=== PATIENT | female | born 1930 | race Caucasian/White ===

== ENCOUNTER 2016-08-15 13:39 | Emergency (ER) | payer OTHER ==
[~2016-08-15] VITALS: Ht 154.9 cm; Wt 65.9 kg
[~2016-08-15 13:39] MED LIST: ANTIVERT25 MG PO; APRESOLINE50 MG PO; ARTIFICIAL TEAR15 M1 BOTH EYES; ASPIR 8181 M1 PO; ASPIRIN81 M1 PO; ASPIRIN81 M2 PO; BYSTOLIC10 MG PO; BYSTOLIC20 MG PO; Bystolic PO; CATAPRES0.1 MG PO; CITRACAL D + H1 EACH PO; CLONIDINE HCL0.1 MG PO; CLONIDINE HCL0.2 MG PO; DICYCLOMINE HCL10 MG PO; HYDRALAZINE HCL50 MG PO; KENALOG,ARISTOC80 GM TP; LANSOPRAZOLE30 MG PO; LO-DOSE ASPIRIN81 M1 PO; LORAZEPAM0.5 MG PO; MECLIZINE HCL25 MG PO; MICROZIDE12.5 M1 PO; OMEPRAZOLE20 MG PO; Ocu-Omega PO; PRESERVISION T1 EACH PO; PREVACID30 MG PO; RANITIDINE HCL150 MG PO; SIMVASTATIN10 MG PO; TAMIFLU75 MG PO; TEKTURNA150 MG PO; TEKTURNA300 MG PO; VAGIFEM10 MCG VG; Vagifem VG; ZANTAC150 MG PO; ZOCOR10 MG PO; ZOFRAN ODT4 MG PO; Zofran IV
[2016-08-15 14:51] LABS: HEMATOCRIT 37.5 % (36.0-46.0); MCH 29.2 PG (29.0-34.0); MCHC 33.3 G/DL (30.0-36.0); MCV 87.6 FL (83-99); MEAN PLAT.VOLUME 9.3 uM^3 (9.5-12.4); PLATELET COUNT 175 K/uL (156-360); RBC DIS.WIDTH-CV 13.2 % (11.8-14.6); RBC DIS.WIDTH-SD 42.2 % (39-53); RED BLOOD COUNT 4.28 M/uL (3.80-5.20); WHITE BLOOD COUNT 6.8 K/uL (4.1-10.2)
[2016-08-15 15:35] LABS: ANION GAP 8 MEQ/L (2-14); CHLORIDE 99 MEQ/L (99-109); POTASSIUM 4.5 MEQ/L (3.7-5.4); SAMPLE HEMOLYSIS CHECK 0; SAMPLE ICTERIC CHECK 0; SAMPLE LIPEMIA CHECK 0; SODIUM 134 MEQ/L (136-147); TOTAL BILIRUBIN 0.5 MG/DL (0.0-1.0)
[2016-08-15 15:40] LABS: ALKALINE PHOSPHATASE 89 IU/L (3-129); GFR ESTIMATE (CALCULATED) > 59 mL/min/; GLUCOSE 114 mg/dL (70-99); UREA NITROGEN (BUN) 10 mg/dL (9-23)
[2016-08-15 15:44] LABS: ADD MIUA? NO; BILIRUBIN NEGATIVE; BLOOD NEGATIVE; COLOR YELLOW ((YELLOW)); GLUCOSE (STRIP) 50; KETONES NEGATIVE; LEUKOCYTES NEGATIVE; NITRITE NEGATIVE; PROTEIN (STRIP) 30; SPECIFIC GRAVITY 1.011 (1.000-1.030); UCUL ADDED? NO; UROBILINOGEN 0.2 MG/DL (0.2-1.0)
[2016-08-15 16:23] LABS: TROP-I INTERPRETATION NEGATIVE; TROPONIN-I 0.02 ng/mL (0.0-0.30)
[2016-08-15] MEDS ORDERED: ZANTAC150 MG PO (20:47)
[2016-08-15] MEDS ORDERED: BENTYL20 MG PO (20:47)
[2016-08-15] MEDS ORDERED: ZOFRAN ODT8 MG PO (20:47)
[2016-08-15 21:39] VITALS: BP 171/59
== END 2016-08-15 21:40 | disposition home or self-care (01) ==
LOC: EME 13:39
DX: R10.9 Unspecified abdominal pain (principal); R11.2 Nausea with vomiting, unspecified; K21.9 Gastro-esophageal reflux disease without esophagitis; Z86.73 Personal history of transient ischemic attack (TIA), and cerebral infarction without residual deficits
CPT/HCPCS: 74177; 80053; 81003; 83880; 84484; 85027; 99281; 99285; J0360; J2270; J2405; J7030

== ENCOUNTER 2017-03-07 11:23 | Emergency (ER) | payer OTHER ==
[~2017-03-07] VITALS: Ht 154.9 cm; Wt 62.7 kg
[~2017-03-07 11:23] MED LIST changes: +BENTYL20 MG PO; +ZOFRAN ODT8 MG PO
[2017-03-07 14:17] VITALS: BP 189/68
== END 2017-03-07 14:18 | disposition home or self-care (01) ==
LOC: EME 11:23
DX: S00.03XA Contusion of scalp, initial encounter (principal); S40.012A Contusion of left shoulder, initial encounter; W10.1XXA Fall (on)(from) sidewalk curb, initial encounter; R42 Dizziness and giddiness; I10 Essential (primary) hypertension; Z79.82 Long term (current) use of aspirin; Z86.73 Personal history of transient ischemic attack (TIA), and cerebral infarction without residual deficits; Z85.038 Personal history of other malignant neoplasm of large intestine; Z90.49 Acquired absence of other specified parts of digestive tract
CPT/HCPCS: 70450; 99281; 99284

== ENCOUNTER 2017-03-24 18:51 | Inpatient (IN) | payer OTHER ==
[~2017-03-24] VITALS: Ht 154.9 cm; Wt 65.4 kg
[2017-03-24 19:11] LABS: HEMATOCRIT 38.3 % (36.0-46.0); MCH 29.9 PG (29.0-34.0); MCHC 34.5 G/DL (30.0-36.0); MCV 86.7 FL (83-99); MEAN PLAT.VOLUME 9.5 uM^3 (9.5-12.4); PLATELET COUNT 161 K/uL (156-360); RBC DIS.WIDTH-CV 13.2 % (11.8-14.6); RBC DIS.WIDTH-SD 41.3 % (39-53); RED BLOOD COUNT 4.42 M/uL (3.80-5.20); WHITE BLOOD COUNT 8.6 K/uL (4.1-10.2)
[2017-03-24 19:21] LABS: CHLORIDE 95 mEq/L (99-109); SODIUM 134 mEq/L (136-147)
[2017-03-24 19:23] LABS: ADD MIUA? YES; BILIRUBIN NEGATIVE; BLOOD SMALL; COLOR COLORLESS ((YELLOW)); GLUCOSE (STRIP) NEGATIVE; KETONES 20; LEUKOCYTES NEGATIVE; NITRITE NEGATIVE; PROTEIN (STRIP) 30; SPECIFIC GRAVITY 1.006 (1.000-1.030); UROBILINOGEN 0.2 MG/DL (0.2-1.0)
[2017-03-24 19:24] LABS: GLUCOSE 110 mg/dL (70-99)
[2017-03-24 19:25] LABS: ANION GAP 16 MEQ/L (2-14)
[2017-03-24 19:26] LABS: TOTAL BILIRUBIN 0.9 mg/dL (0.0-1.0)
[2017-03-24 19:27] LABS: ALKALINE PHOSPHATASE 107 IU/L (3-129); GFR ESTIMATE (CALCULATED) > 59 mL/min/
[2017-03-24 19:28] LABS: UREA NITROGEN (BUN) 11 mg/dL (9-23)
[2017-03-24 20:20] LABS: BACTERIA NONE SEEN /HPF; EPITHELIAL CELLS RARE /HPF; MUCUS NONE SEEN /LPF; RED BLOOD CELLS 0-5 /HPF (0-5); UCUL ADDED? NO; WHITE BLOOD CELLS 0-5 /HPF (0-5)
[2017-03-24 20:23] LABS: INTER. NORMALIZED RATIO 1.1; PROTHROMBIN TIME 12.8 SEC (10.2-12.9)
[2017-03-24 20:37] LABS: TROP-I INTERPRETATION NEGATIVE; TROPONIN-I 0.02 ng/mL (0.0-0.30)
[2017-03-24] MEDS ORDERED: ATIVAN0.5 MG PO (22:04)
[2017-03-25] VITALS (13 sets, daily range): BP systolic 88–191; BP diastolic 51–79
[2017-03-25] MEDS ORDERED: IRBESARTAN300 MG PO (00:31)
[2017-03-25] MEDS ORDERED: ANTIVERT25 MG PO (00:32)
[2017-03-25 02:39] LABS: TROP-I INTERPRETATION NEGATIVE; TROPONIN-I 0.02 ng/mL (0.0-0.30)
[2017-03-25 10:00] LABS: TROP-I INTERPRETATION NEGATIVE; TROPONIN-I 0.02 ng/mL (0.0-0.30)
[2017-03-26] VITALS (8 sets, daily range): BP systolic 160–221; BP diastolic 67–100
[2017-03-26 05:30] LABS: EOSINOPHIL (%) 2.9 % (0-5); EOSINOPHIL COUNT 0.2 K/uL (0-0.3); HEMATOCRIT 34.9 % (36.0-46.0); IMMATURE GRANULOCYTE (%) 0.6 % (0.0-0.7); INSTRUMENT ABS NEUTROPHIL CT 4.2 K/uL; LYMPHOCYTE COUNT 1.1 K/uL (1.0-2.8); MCH 28.8 PG (29.0-34.0); MCHC 32.7 G/DL (30.0-36.0); MCV 88.1 FL (83-99); MEAN PLAT.VOLUME 9.7 uM^3 (9.5-12.4); MONOCYTE (%) 14.4 % (3-12); MONOCYTE COUNT 0.9 K/uL (0-0.8); NEUTROPHIL (%) 64.5 % (45-76); NEUTROPHIL COUNT 4.2 K/uL (1.8-6.4); PLATELET COUNT 147 K/uL (156-360); RBC DIS.WIDTH-CV 13.2 % (11.8-14.6); RBC DIS.WIDTH-SD 43.1 % (39-53); RED BLOOD COUNT 3.96 M/uL (3.80-5.20); WHITE BLOOD COUNT 6.5 K/uL (4.1-10.2)
[2017-03-26 06:04] LABS: ANION GAP 7 MEQ/L (2-14); CHLORIDE 98 MEQ/L (99-109); GFR ESTIMATE (CALCULATED) 56 mL/min/; GLUCOSE 93 mg/dL (70-99); SAMPLE HEMOLYSIS CHECK 0; SAMPLE ICTERIC CHECK 0; SAMPLE LIPEMIA CHECK 0; SODIUM 133 MEQ/L (136-147); UREA NITROGEN (BUN) 13 mg/dL (9-23)
[2017-03-27 03:13] VITALS: BP 178/77
[2017-03-27 06:16] LABS: ANION GAP 9 MEQ/L (2-14); CHLORIDE 98 MEQ/L (99-109); GFR ESTIMATE (CALCULATED) > 59 mL/min/; GLUCOSE 110 mg/dL (70-99); SAMPLE HEMOLYSIS CHECK 2; SAMPLE ICTERIC CHECK 0; SAMPLE LIPEMIA CHECK 0; SODIUM 133 MEQ/L (136-147); UREA NITROGEN (BUN) 9 mg/dL (9-23)
[2017-03-27 08:04] VITALS: BP 198/86
[2017-03-27 11:15] VITALS: BP 171/70
[2017-03-27 16:15] VITALS: BP 175/79
[2017-03-27 19:45] VITALS: BP 119/67
[2017-03-28] VITALS: BP 116/56
[2017-03-28 04:31] VITALS: BP 112/53
[2017-03-28 07:25] VITALS: BP 169/71
[2017-03-28] MEDS ORDERED: IRBESARTAN300 MG PO (11:10)
[2017-03-28] MEDS ORDERED: SPIRONOLACTONE25 MG PO (11:13)
[2017-03-28] MEDS ORDERED: APRESOLINE50 MG PO (11:14)
[2017-03-28] MEDS ORDERED: APRESOLINE25 MG PO (11:14)
[2017-03-28 11:32] VITALS: BP 116/59
[2017-03-28] MEDS ORDERED: BYSTOLIC20 MG PO (12:20)
== END 2017-03-28 13:08 | disposition home health service (06) | DRG 310 ==
LOC: EME 18:51 → EDOF 03-25 01:03 → ENRESERV 03-25 01:04 → 5WEST 03-25 01:58
PROVIDERS: Emergency Medicine; Internal Medicine; Physician Assistant; Student in an Organized Health Care Education/Training Program
DX: R00.1 Bradycardia, unspecified (principal); I95.2 Hypotension due to drugs; T46.5X5A Adverse effect of other antihypertensive drugs, initial encounter; I16.0 Hypertensive urgency; I10 Essential (primary) hypertension; R10.13 Epigastric pain; K59.00 Constipation, unspecified; E04.1 Nontoxic single thyroid nodule; F41.9 Anxiety disorder, unspecified; E78.5 Hyperlipidemia, unspecified; K21.9 Gastro-esophageal reflux disease without esophagitis; K44.9 Diaphragmatic hernia without obstruction or gangrene; G43.909 Migraine, unspecified, not intractable, without status migrainosus; R31.29 Other microscopic hematuria; Z82.49 Family history of ischemic heart disease and other diseases of the circulatory system; Z85.038 Personal history of other malignant neoplasm of large intestine; Z86.73 Personal history of transient ischemic attack (TIA), and cerebral infarction without residual deficits; Z90.49 Acquired absence of other specified parts of digestive tract; Z79.82 Long term (current) use of aspirin; Z91.040 Latex allergy status; Z88.1 Allergy status to other antibiotic agents; Z88.2 Allergy status to sulfonamides; Z95.828 Presence of other vascular implants and grafts
CPT/HCPCS: 71010; 71275; 74174; 80048; 80053; 81003; 82948; 83605; 83690; 84484; 85025; 85027; 85610; 85730; 87040; 93005; 94799; 97530 GO; 97530 GP; 99281; 99285; G8978 GP CI; G8979 GP CH; G8987 GO CI; G8988 GO CH; J0360; J1650; J2060; J2270; J2405; J7030; J7040

== ENCOUNTER 2017-10-31 10:17 | Observation (INO) | payer OTHER ==
[~2017-10-31] VITALS: Ht 154.9 cm; Wt 61.3 kg
[~2017-10-31 10:17] MED LIST changes: +APRESOLINE25 MG PO; +ATIVAN0.5 MG PO; +IRBESARTAN300 MG PO; +SPIRONOLACTONE25 MG PO
[2017-10-31 10:40] LABS: BASOPHIL (%) 0.5 % (0-1); EOSINOPHIL (%) 2.3 % (0-5); EOSINOPHIL COUNT 0.1 K/uL (0-0.3); HEMATOCRIT 33.9 % (36.0-46.0); HEMOGLOBIN 11.5 G/DL (11.9-15.5); IMMATURE GRANULOCYTE (%) 0.7 % (0.0-0.7); LYMPHOCYTE (%) 8.3 % (15-42); LYMPHOCYTE COUNT 0.5 K/uL (1.0-2.8); MCH 29.6 PG (29.0-34.0); MCHC 33.9 G/DL (30.0-36.0); MCV 87.4 FL (83-99); MONOCYTE COUNT 0.7 K/uL (0-0.8); NEUTROPHIL (%) 76.2 % (45-76); NEUTROPHIL COUNT 4.2 K/uL (1.8-6.4); PLATELET COUNT 147 K/uL (156-360); RBC DIS.WIDTH-CV 13.6 % (11.8-14.6); RBC DIS.WIDTH-SD 43.4 % (39-53); RED BLOOD COUNT 3.88 M/uL (3.80-5.20); WHITE BLOOD COUNT 5.6 K/uL (4.1-10.2)
[2017-10-31 10:50] LABS: CHLORIDE 98 mEq/L (99-109); POTASSIUM 3.9 mEq/L (3.7-5.4); SODIUM 132 mEq/L (136-147)
[2017-10-31 10:52] LABS: GLUCOSE 110 mg/dL (70-99)
[2017-10-31 10:53] LABS: INTER. NORMALIZED RATIO 1.1
[2017-10-31 10:56] LABS: CREATININE 0.9 mg/dL (0.6-1.3); GFR ESTIMATE (CALCULATED) > 59 mL/min/
[2017-10-31 10:57] LABS: UREA NITROGEN (BUN) 10 mg/dL (9-23)
[2017-10-31 11:02] LABS: TROP-I INTERPRETATION NEGATIVE; TROPONIN-I 0.01 ng/mL (0.0-0.30)
[2017-10-31 11:28] LABS: HDL CHOLESTEROL 58 MG/DL (Desirable>=50); LDL CHOLESTEROL 70 mg/dL (Desirable<100); NON-HDL CHOLESTEROL 83 mg/dL (Desirable<160); TOTAL CHOLESTEROL 141 mg/dL (Desirable<200); TRIGLYCERIDES 66 MG/DL (Normal: <150)
[2017-10-31 12:08] LABS: APPEARANCE CLEAR ((CLEAR)); BILIRUBIN NEGATIVE; BLOOD NEGATIVE; COLOR STRAW ((YELLOW)); GLUCOSE (STRIP) NEGATIVE; KETONES NEGATIVE; LEUKOCYTES NEGATIVE; NITRITE NEGATIVE; PROTEIN (STRIP) 30; SPECIFIC GRAVITY 1.009 (1.000-1.030); UCUL ADDED? NO; UROBILINOGEN 0.2 MG/DL (0.2-1.0)
[2017-10-31 13:42] LABS: HEMOGLOBIN A1c (GLYCOHEMOGLOB) 5.4 % (Below 5.7)
[2017-10-31 14:49] LABS: TROP-I INTERPRETATION NEGATIVE; TROPONIN-I 0.02 ng/mL (0.0-0.30)
[2017-10-31 15:00] VITALS: BP 187/88
[2017-10-31] MEDS ORDERED: APRESOLINE50 MG PO (15:09)
[2017-10-31] MEDS ORDERED: AVAPRO300 MG PO (15:10)
[2017-10-31 16:27] VITALS: BP 207/95
[2017-10-31 19:45] VITALS: BP 204/84
[2017-10-31 20:18] LABS: TROP-I INTERPRETATION NEGATIVE; TROPONIN-I 0.02 ng/mL (0.0-0.30)
[2017-10-31 23:55] VITALS: BP 143/67
[2017-11-01 01:05] LABS: TROP-I INTERPRETATION NEGATIVE; TROPONIN-I 0.04 ng/mL (0.0-0.30)
[2017-11-01 03:34] VITALS: BP 141/65
[2017-11-01 11:00] VITALS: BP 141/65
[2017-11-01] MEDS ORDERED: PROTONIX40 MG PO (14:27)
[2017-11-01] MEDS ORDERED: COZAAR50 MG PO (14:27)
[2017-11-01] MEDS ORDERED: ECOTRIN325 MG PO (14:28)
[2017-11-01] MEDS ORDERED: LIPITOR40 MG PO (14:29)
[2017-11-01] MEDS ORDERED: TYLENOL REGULA325 MG PO (14:29)
[2017-11-01] MEDS ORDERED: LOVENOX40 MG/0.4 SC (14:31)
[2017-11-01] MEDS ORDERED: NITROSTAT0.4 MG SL (14:33)
== END 2017-11-01 13:00 ==
LOC: EME → EDBD 10:17 → 4SOUTH 15:18 → EDOF 15:18 → ENRESERV 15:19 → 4SOUTH 16:18
PROVIDERS: Emergency Medicine; Hospitalist
DX: R07.9 Chest pain, unspecified (principal); G45.9 Transient cerebral ischemic attack, unspecified; I10 Essential (primary) hypertension; E78.5 Hyperlipidemia, unspecified; Z86.73 Personal history of transient ischemic attack (TIA), and cerebral infarction without residual deficits; R42 Dizziness and giddiness; R11.0 Nausea; R61 Generalized hyperhidrosis; I65.29 Occlusion and stenosis of unspecified carotid artery; I70.1 Atherosclerosis of renal artery; Z98.890 Other specified postprocedural states; Z82.49 Family history of ischemic heart disease and other diseases of the circulatory system; Z90.710 Acquired absence of both cervix and uterus; Z90.49 Acquired absence of other specified parts of digestive tract; Z79.82 Long term (current) use of aspirin; K44.9 Diaphragmatic hernia without obstruction or gangrene; R09.02 Hypoxemia; Z88.2 Allergy status to sulfonamides; Z88.5 Allergy status to narcotic agent; Z88.8 Allergy status to other drugs, medicaments and biological substances; Z88.1 Allergy status to other antibiotic agents; Z91.040 Latex allergy status
CPT/HCPCS: 70450; 70496; 70498; 70551; 71045; 71260; 80048; 80061; 81003; 83036; 84443; 84484; 85025; 85610; 85651; 85730; 86140; 93005; 99281; 99285; G0378; G8978 GP CJ; G8979 GP CH; G8980 CJ; G8987 GO CJ; G8988 GO CH; G8989 CJ; J0360; J1650; J2405; J7040; S0028

== ENCOUNTER 2017-11-01 10:17 | Inpatient (IN) | payer OTHER ==
[~2017-11-01] VITALS: Ht 154.9 cm; Wt 62.5 kg
[~2017-11-01 10:17] MED LIST changes: +AVAPRO300 MG PO
[2017-11-01 13:15] VITALS: BP 135/91
[2017-11-01 14:21] VITALS: BP 148/61
[2017-11-01] MEDS ORDERED: PROTONIX40 MG PO (14:27)
[2017-11-01] MEDS ORDERED: COZAAR50 MG PO (14:27)
[2017-11-01] MEDS ORDERED: ECOTRIN325 MG PO (14:28)
[2017-11-01] MEDS ORDERED: LIPITOR40 MG PO (14:29)
[2017-11-01] MEDS ORDERED: TYLENOL REGULA325 MG PO (14:29)
[2017-11-01] MEDS ORDERED: LOVENOX40 MG/0.4 SC (14:31)
[2017-11-01] MEDS ORDERED: NITROSTAT0.4 MG SL (14:33)
[2017-11-01 15:23] VITALS: BP 176/74
[2017-11-02 00:34] VITALS: BP 129/75
[2017-11-02 04:58] VITALS: BP 139/65
[2017-11-02 05:26] LABS: HEMATOCRIT 30.6 % (36.0-46.0); HEMOGLOBIN 10.2 G/DL (11.9-15.5); MCH 28.8 PG (29.0-34.0); MCHC 33.3 G/DL (30.0-36.0); MCV 86.4 FL (83-99); PLATELET COUNT 137 K/uL (156-360); RBC DIS.WIDTH-CV 13.6 % (11.8-14.6); RBC DIS.WIDTH-SD 42.4 % (39-53); RED BLOOD COUNT 3.54 M/uL (3.80-5.20); WHITE BLOOD COUNT 5.3 K/uL (4.1-10.2)
[2017-11-02 06:03] LABS: ALKALINE PHOSPHATASE 62 IU/L (3-129); ALT (GPT) 9 IU/L (3-49); AST (GOT) 16 IU/L (2-34); C-REACTIVE PROTEIN 3.1 MG/L (0-10); CHLORIDE 100 MEQ/L (99-109); CREATININE 0.9 MG/DL (0.6-1.3); GFR ESTIMATE (CALCULATED) > 59 mL/min/; GLUCOSE 96 mg/dL (70-99); POTASSIUM 3.6 MEQ/L (3.7-5.4); SODIUM 134 MEQ/L (136-147); TOTAL BILIRUBIN 0.6 MG/DL (0.0-1.0); TOTAL PROTEIN 6.1 G/DL (6.4-8.3); UREA NITROGEN (BUN) 9 mg/dL (9-23)
[2017-11-02 08:45] LABS: FOLIC ACID (FOLATE) 16.9 NG/ML (5.0-22.0)
[2017-11-02 10:15] LABS: ERTH.SED.RATE 48 MM/HR (0-30)
[2017-11-02 16:30] VITALS: BP 192/72
[2017-11-02 16:40] VITALS: BP 190/82
[2017-11-02 18:21] VITALS: BP 106/60
[2017-11-03 05:45] VITALS: BP 129/59
[2017-11-03 12:00] VITALS: BP 120/60
[2017-11-03 15:21] VITALS: BP 146/67
[2017-11-03 17:06] VITALS: BP 156/68
[2017-11-03 20:09] VITALS: BP 138/62
[2017-11-04 05:11] VITALS: BP 121/58
[2017-11-04 15:15] VITALS: BP 146/66
[2017-11-04 21:53] VITALS: BP 140/60
[2017-11-05 00:02] VITALS: BP 134/60
[2017-11-05 05:41] VITALS: BP 122/60
[2017-11-05 07:14] LABS: HEMATOCRIT 28.8 % (36.0-46.0); HEMOGLOBIN 9.6 G/DL (11.9-15.5); MCH 28.7 PG (29.0-34.0); MCHC 33.3 G/DL (30.0-36.0); MCV 86.2 FL (83-99); PLATELET COUNT 133 K/uL (156-360); RBC DIS.WIDTH-CV 13.6 % (11.8-14.6); RBC DIS.WIDTH-SD 42.4 % (39-53); RED BLOOD COUNT 3.34 M/uL (3.80-5.20); WHITE BLOOD COUNT 6.1 K/uL (4.1-10.2)
[2017-11-05 07:36] LABS: ALBUMIN 3.1 G/DL (3.2-4.8); ALKALINE PHOSPHATASE 64 IU/L (3-129); ALT (GPT) 11 IU/L (3-49); AST (GOT) 16 IU/L (2-34); CHLORIDE 97 MEQ/L (99-109); CREATININE 0.7 MG/DL (0.6-1.3); GFR ESTIMATE (CALCULATED) > 59 mL/min/; GLUCOSE 111 mg/dL (70-99); POTASSIUM 4.3 MEQ/L (3.7-5.4); SODIUM 130 MEQ/L (136-147); TOTAL BILIRUBIN 0.6 MG/DL (0.0-1.0); TOTAL PROTEIN 5.5 G/DL (6.4-8.3); UREA NITROGEN (BUN) 11 mg/dL (9-23)
[2017-11-05 13:02] VITALS: BP 140/70
[2017-11-05 15:17] VITALS: BP 155/69
[2017-11-06 05:03] VITALS: BP 114/56
[2017-11-06 07:04] LABS: CHLORIDE 96 MEQ/L (99-109); CREATININE 0.7 MG/DL (0.6-1.3); GFR ESTIMATE (CALCULATED) > 59 mL/min/; GLUCOSE 103 mg/dL (70-99); POTASSIUM 4.3 MEQ/L (3.7-5.4); SODIUM 129 MEQ/L (136-147); UREA NITROGEN (BUN) 12 mg/dL (9-23)
[2017-11-06 15:32] VITALS: BP 118/74
[2017-11-06 21:26] VITALS: BP 137/61
[2017-11-07 00:21] VITALS: BP 121/58
[2017-11-07 05:11] VITALS: BP 125/75
[2017-11-07 06:23] LABS: CHLORIDE 99 MEQ/L (99-109); CREATININE 0.7 MG/DL (0.6-1.3); GFR ESTIMATE (CALCULATED) > 59 mL/min/; GLUCOSE 107 mg/dL (70-99); POTASSIUM 4.1 MEQ/L (3.7-5.4); SODIUM 132 MEQ/L (136-147); UREA NITROGEN (BUN) 14 mg/dL (9-23)
[2017-11-07] MEDS ORDERED: SODIUM CHLORIDE1 G1 PO (08:04)
[2017-11-07 08:18] VITALS: BP 132/56
== END 2017-11-07 09:50 | disposition home or self-care (01) | DRG 556 ==
LOC: 3WEST 10:17
PROVIDERS: Physical Medicine & Rehabilitation Pain Medicine; Psychiatry & Neurology Neurology
PROC: F07M0ZZ Range of Motion and Joint Mobility Treatment of Musculoskeletal System - Whole Body (ICD-10-PCS; principal; 2017-11-01)
DX: R26.2 Difficulty in walking, not elsewhere classified (principal); E87.1 Hypo-osmolality and hyponatremia; G43.909 Migraine, unspecified, not intractable, without status migrainosus; Z86.73 Personal history of transient ischemic attack (TIA), and cerebral infarction without residual deficits; R07.89 Other chest pain; I10 Essential (primary) hypertension; R11.0 Nausea; R42 Dizziness and giddiness; H02.401 Unspecified ptosis of right eyelid; E78.5 Hyperlipidemia, unspecified; K59.00 Constipation, unspecified; F41.9 Anxiety disorder, unspecified; M19.90 Unspecified osteoarthritis, unspecified site
CPT/HCPCS: 80048; 80053; 82306; 82607; 82746; 85027; 85651; 86038; 86140; 97110 GO; 97530 GP; J1650

== ENCOUNTER 2017-12-29 18:00 | Inpatient (IN) | payer OTHER ==
[~2017-12-29] VITALS: Ht 154.9 cm; Wt 57.3 kg
[~2017-12-29 18:00] MED LIST changes: +COZAAR50 MG PO; +ECOTRIN325 MG PO; +LIPITOR40 MG PO; +LOVENOX40 MG/0.4 SC; +NITROSTAT0.4 MG SL; +PROTONIX40 MG PO; +SODIUM CHLORIDE1 G1 PO; +TYLENOL REGULA325 MG PO
[2017-12-29 20:01] LABS: BASOPHIL (%) 0.3 % (0-1); BASOPHIL COUNT 0.1 K/uL (0-0.1); EOSINOPHIL (%) 0.5 % (0-5); EOSINOPHIL COUNT 0.1 K/uL (0-0.3); HEMATOCRIT 35.6 % (36.0-46.0); HEMOGLOBIN 12.4 G/DL (11.9-15.5); IMMATURE GRANULOCYTE (%) 0.6 % (0.0-0.7); LYMPHOCYTE (%) 6.5 % (15-42); MCH 29.4 PG (29.0-34.0); MCHC 34.8 G/DL (30.0-36.0); MCV 84.4 FL (83-99); MONOCYTE (%) 6.2 % (3-12); MONOCYTE COUNT 0.9 K/uL (0-0.8); NEUTROPHIL (%) 85.9 % (45-76); NEUTROPHIL COUNT 12.5 K/uL (1.8-6.4); PLATELET COUNT 208 K/uL (156-360); RBC DIS.WIDTH-CV 13.1 % (11.8-14.6); RED BLOOD COUNT 4.22 M/uL (3.80-5.20); WHITE BLOOD COUNT 14.6 K/uL (4.1-10.2)
[2017-12-29 20:04] LABS: ALBUMIN 4.4 g/dL (3.2-4.8); CHLORIDE 94 mEq/L (99-109); POTASSIUM 3.9 mEq/L (3.7-5.4); SODIUM 130 mEq/L (136-147)
[2017-12-29 20:06] LABS: GLUCOSE 151 mg/dL (70-99); TOTAL PROTEIN 8.6 g/dL (6.4-8.3)
[2017-12-29 20:08] LABS: TOTAL BILIRUBIN 0.8 mg/dL (0.0-1.0)
[2017-12-29 20:10] LABS: ALKALINE PHOSPHATASE 97 IU/L (3-129); CREATININE 0.9 mg/dL (0.6-1.3); GFR ESTIMATE (CALCULATED) > 59 mL/min/
[2017-12-29 20:11] LABS: AST (GOT) 25 IU/L (2-34); UREA NITROGEN (BUN) 15 mg/dL (9-23)
[2017-12-29 20:13] LABS: ALT (GPT) 14 IU/L (3-49); LIPASE 84 U/L (1.0-51.0)
[2017-12-29 20:36] LABS: TROP-I INTERPRETATION NEGATIVE; TROPONIN-I 0.02 ng/mL (0.0-0.30)
[2017-12-29 21:38] LABS: APPEARANCE CLEAR ((CLEAR)); BILIRUBIN NEGATIVE; BLOOD NEGATIVE; COLOR YELLOW ((YELLOW)); GLUCOSE (STRIP) NEGATIVE; KETONES 5; LEUKOCYTES TRACE; NITRITE NEGATIVE; PROTEIN (STRIP) 100; SPECIFIC GRAVITY 1.016 (1.000-1.030); UROBILINOGEN 0.2 MG/DL (0.2-1.0)
[2017-12-29 21:52] LABS: BACTERIA NONE SEEN /HPF; EPITHELIAL CELLS RARE /HPF; MUCUS TRACE /LPF; UCUL ADDED? NO; WHITE BLOOD CELLS 0-5 /HPF (0-5)
[2017-12-29] MEDS ORDERED: IRBESARTAN300 MG PO (23:58)
[2017-12-30] VITALS (14 sets, daily range): BP systolic 150–204; BP diastolic 70–97
[2017-12-30] MEDS ORDERED: REFRESH OPTIVE1 EAC1 BOTH EYES (00:04)
[2017-12-30 17:39] LABS: CHLORIDE 95 MEQ/L (99-109); CREATININE 0.7 MG/DL (0.6-1.3); GFR ESTIMATE (CALCULATED) > 59 mL/min/; GLUCOSE 117 mg/dL (70-99); POTASSIUM 3.7 MEQ/L (3.7-5.4); SODIUM 127 MEQ/L (136-147); UREA NITROGEN (BUN) 12 mg/dL (9-23)
[2017-12-31] VITALS (7 sets, daily range): BP systolic 148–195; BP diastolic 60–77
[2017-12-31 06:35] LABS: HEMATOCRIT 36.6 % (36.0-46.0); HEMOGLOBIN 12.2 G/DL (11.9-15.5); MCH 29.2 PG (29.0-34.0); MCHC 33.3 G/DL (30.0-36.0); MCV 87.6 FL (83-99); PLATELET COUNT 179 K/uL (156-360); RBC DIS.WIDTH-CV 13.6 % (11.8-14.6); RBC DIS.WIDTH-SD 43.5 % (39-53); RED BLOOD COUNT 4.18 M/uL (3.80-5.20); WHITE BLOOD COUNT 11.9 K/uL (4.1-10.2)
[2017-12-31 06:39] LABS: CHLORIDE 95 MEQ/L (99-109); CREATININE 0.8 MG/DL (0.6-1.3); GFR ESTIMATE (CALCULATED) > 59 mL/min/; GLUCOSE 112 mg/dL (70-99); POTASSIUM 4.2 MEQ/L (3.7-5.4); SODIUM 127 MEQ/L (136-147); UREA NITROGEN (BUN) 12 mg/dL (9-23)
[2018-01-01 03:30] VITALS: BP 155/70
[2018-01-01 05:12] LABS: HEMATOCRIT 32.3 % (36.0-46.0); HEMOGLOBIN 10.8 G/DL (11.9-15.5); MCH 29.1 PG (29.0-34.0); MCHC 33.4 G/DL (30.0-36.0); MCV 87.1 FL (83-99); PLATELET COUNT 163 K/uL (156-360); RBC DIS.WIDTH-CV 13.5 % (11.8-14.6); RBC DIS.WIDTH-SD 42.8 % (39-53); RED BLOOD COUNT 3.71 M/uL (3.80-5.20); WHITE BLOOD COUNT 12.1 K/uL (4.1-10.2)
[2018-01-01 05:31] LABS: ALKALINE PHOSPHATASE 55 IU/L (3-129); ALT (GPT) 12 IU/L (3-49); AST (GOT) 23 IU/L (2-34); CHLORIDE 100 MEQ/L (99-109); CREATININE 0.9 MG/DL (0.6-1.3); GFR ESTIMATE (CALCULATED) > 59 mL/min/; GLUCOSE 99 mg/dL (70-99); POTASSIUM 3.7 MEQ/L (3.7-5.4); SODIUM 132 MEQ/L (136-147); TOTAL BILIRUBIN 0.4 MG/DL (0.0-1.0); TOTAL PROTEIN 5.4 G/DL (6.4-8.3); UREA NITROGEN (BUN) 16 mg/dL (9-23)
[2018-01-01 08:25] VITALS: BP 204/82
[2018-01-01 12:05] VITALS: BP 132/61
[2018-01-01 17:01] VITALS: BP 166/72
[2018-01-01 19:50] VITALS: BP 145/66
[2018-01-01 23:36] VITALS: BP 175/72
[2018-01-02] VITALS (10 sets, daily range): BP systolic 130–177; BP diastolic 65–83
[2018-01-02 05:11] LABS: BASOPHIL (%) 0.2 % (0-1); EOSINOPHIL (%) 0.2 % (0-5); HEMATOCRIT 29.2 % (36.0-46.0); HEMOGLOBIN 9.8 G/DL (11.9-15.5); IMMATURE GRANULOCYTE (%) 0.9 % (0.0-0.7); LYMPHOCYTE (%) 3.1 % (15-42); LYMPHOCYTE COUNT 0.4 K/uL (1.0-2.8); MCH 29.2 PG (29.0-34.0); MCHC 33.6 G/DL (30.0-36.0); MCV 86.9 FL (83-99); MONOCYTE (%) 9.5 % (3-12); MONOCYTE COUNT 1.2 K/uL (0-0.8); NEUTROPHIL (%) 86.1 % (45-76); PLATELET COUNT 151 K/uL (156-360); RBC DIS.WIDTH-CV 13.7 % (11.8-14.6); RBC DIS.WIDTH-SD 42.9 % (39-53); RED BLOOD COUNT 3.36 M/uL (3.80-5.20); WHITE BLOOD COUNT 12.7 K/uL (4.1-10.2)
[2018-01-02 06:30] LABS: CHLORIDE 105 MEQ/L (99-109); CREATININE 0.8 MG/DL (0.6-1.3); GFR ESTIMATE (CALCULATED) > 59 mL/min/; GLUCOSE 104 mg/dL (70-99); POTASSIUM 3.1 MEQ/L (3.7-5.4); SODIUM 135 MEQ/L (136-147); UREA NITROGEN (BUN) 15 mg/dL (9-23)
[2018-01-02 14:32] LABS: TROP-I INTERPRETATION INDETERMINATE; TROPONIN-I 0.48 ng/mL (0.0-0.30)
[2018-01-02 19:45] LABS: TROP-I INTERPRETATION INDETERMINATE; TROPONIN-I 0.49 ng/mL (0.0-0.30)
[2018-01-03 02:21] LABS: BASOPHIL (%) 0.1 % (0-1); EOSINOPHIL (%) 0.1 % (0-5); HEMATOCRIT 27.8 % (36.0-46.0); HEMOGLOBIN 9.6 G/DL (11.9-15.5); IMMATURE GRANULOCYTE (%) 0.8 % (0.0-0.7); LYMPHOCYTE (%) 4.1 % (15-42); LYMPHOCYTE COUNT 0.6 K/uL (1.0-2.8); MCH 29.4 PG (29.0-34.0); MCHC 34.5 G/DL (30.0-36.0); MCV 85.3 FL (83-99); MONOCYTE (%) 9.4 % (3-12); MONOCYTE COUNT 1.3 K/uL (0-0.8); NEUTROPHIL (%) 85.5 % (45-76); NEUTROPHIL COUNT 12.2 K/uL (1.8-6.4); PLATELET COUNT 153 K/uL (156-360); RBC DIS.WIDTH-CV 13.6 % (11.8-14.6); RBC DIS.WIDTH-SD 42.5 % (39-53); RED BLOOD COUNT 3.26 M/uL (3.80-5.20); WHITE BLOOD COUNT 14.2 K/uL (4.1-10.2)
[2018-01-03 02:33] LABS: POTASSIUM 3.5 mEq/L (3.7-5.4); SODIUM 136 mEq/L (136-147)
[2018-01-03 02:34] LABS: GLUCOSE 111 mg/dL (70-99)
[2018-01-03 02:38] LABS: CREATININE 0.7 mg/dL (0.6-1.3); GFR ESTIMATE (CALCULATED) > 59 mL/min/
[2018-01-03 02:39] LABS: UREA NITROGEN (BUN) 13 mg/dL (9-23)
[2018-01-03 02:44] LABS: CHLORIDE 108 mEq/L (99-109)
[2018-01-03 02:46] LABS: TROP-I INTERPRETATION INDETERMINATE; TROPONIN-I 0.34 ng/mL (0.0-0.30)
[2018-01-03 04:07] VITALS: BP 158/86
[2018-01-03 07:40] VITALS: BP 146/83
[2018-01-03 11:16] VITALS: BP 156/83
[2018-01-03 15:00] VITALS: BP 153/76
[2018-01-03 19:36] VITALS: BP 144/115
[2018-01-03 23:49] VITALS: BP 157/70
[2018-01-04] VITALS (8 sets, daily range): BP systolic 134–200; BP diastolic 58–110
[2018-01-04 05:54] LABS: BASOPHIL (%) 0.1 % (0-1); EOSINOPHIL (%) 0 % (0-5); IMMATURE GRANULOCYTE (%) 1.1 % (0.0-0.7); LYMPHOCYTE (%) 3.5 % (15-42); LYMPHOCYTE COUNT 0.5 K/uL (1.0-2.8); MCH 29.2 PG (29.0-34.0); MCHC 33.3 G/DL (30.0-36.0); MCV 87.7 FL (83-99); MONOCYTE (%) 8.7 % (3-12); MONOCYTE COUNT 1.1 K/uL (0-0.8); NEUTROPHIL (%) 86.6 % (45-76); NEUTROPHIL COUNT 11.2 K/uL (1.8-6.4); RBC DIS.WIDTH-CV 14.2 % (11.8-14.6); RED BLOOD COUNT 3.08 M/uL (3.80-5.20); WHITE BLOOD COUNT 12.9 K/uL (4.1-10.2)
[2018-01-04 06:04] LABS: CHLORIDE 109 MEQ/L (99-109); CREATININE 0.5 MG/DL (0.6-1.3); GFR ESTIMATE (CALCULATED) > 59 mL/min/; GLUCOSE 112 mg/dL (70-99); MAGNESIUM 1.9 mg/dl (1.3-2.7); SODIUM 136 MEQ/L (136-147); UREA NITROGEN (BUN) 14 mg/dL (9-23)
[2018-01-04 06:08] LABS: POTASSIUM 4.4 MEQ/L (3.7-5.4)
[2018-01-04 08:46] LABS: PLAT.SUFFICIENCY ADEQUATE; PLATELET COUNT 171 K/uL (156-360)
[2018-01-04 12:55] LABS: GASTRIC OCCULT BLD. POSITIVE
[2018-01-04 13:34] LABS: HEMATOCRIT 28.5 % (36.0-46.0); HEMOGLOBIN 9.9 G/DL (11.9-15.5); MCV 84.8 FL (83-99)
[2018-01-04 17:19] LABS: CHLORIDE 110 MEQ/L (99-109); CREATININE 0.5 MG/DL (0.6-1.3); GFR ESTIMATE (CALCULATED) > 59 mL/min/; GLUCOSE 128 mg/dL (70-99); UREA NITROGEN (BUN) 14 mg/dL (9-23)
[2018-01-04 17:28] LABS: POTASSIUM 3.4 MEQ/L (3.7-5.4); SODIUM 143 MEQ/L (136-147)
[2018-01-04 17:35] LABS: HEMATOCRIT 29.7 % (36.0-46.0); HEMOGLOBIN 10.5 G/DL (11.9-15.5); MCV 83.2 FL (83-99)
[2018-01-05 01:00] LABS: HEMATOCRIT 25.3 % (36.0-46.0); HEMOGLOBIN 8.9 G/DL (11.9-15.5); MCV 83.8 FL (83-99)
[2018-01-05 03:37] VITALS: BP 152/61
[2018-01-05 04:31] VITALS: BP 151/71
[2018-01-05 07:40] VITALS: BP 107/75
[2018-01-05 08:17] LABS: BASOPHIL (%) 0.2 % (0-1); EOSINOPHIL (%) 0.1 % (0-5); HEMATOCRIT 26.3 % (36.0-46.0); LYMPHOCYTE (%) 4.1 % (15-42); LYMPHOCYTE COUNT 0.8 K/uL (1.0-2.8); MCH 29.3 PG (29.0-34.0); MCHC 34.2 G/DL (30.0-36.0); MCV 85.7 FL (83-99); MONOCYTE (%) 8.1 % (3-12); MONOCYTE COUNT 1.6 K/uL (0-0.8); NEUTROPHIL (%) 86.5 % (45-76); NEUTROPHIL COUNT 17.3 K/uL (1.8-6.4); PLATELET COUNT 201 K/uL (156-360); RBC DIS.WIDTH-CV 14.5 % (11.8-14.6); RBC DIS.WIDTH-SD 45.1 % (39-53); RED BLOOD COUNT 3.07 M/uL (3.80-5.20)
[2018-01-05 08:57] LABS: CHLORIDE 109 MEQ/L (99-109); CREATININE 0.5 MG/DL (0.6-1.3); GFR ESTIMATE (CALCULATED) > 59 mL/min/; GLUCOSE 115 mg/dL (70-99); SODIUM 140 MEQ/L (136-147); UREA NITROGEN (BUN) 12 mg/dL (9-23)
[2018-01-05 09:03] LABS: MAGNESIUM 1.5 mg/dl (1.3-2.7)
[2018-01-05 12:25] VITALS: BP 161/84
[2018-01-05 15:55] VITALS: BP 143/63
[2018-01-05 19:30] VITALS: BP 138/74
[2018-01-06] VITALS (7 sets, daily range): BP systolic 125–158; BP diastolic 64–88
[2018-01-06 05:39] LABS: BASOPHIL (%) 0.1 % (0-1); EOSINOPHIL (%) 1.3 % (0-5); EOSINOPHIL COUNT 0.2 K/uL (0-0.3); HEMATOCRIT 26.7 % (36.0-46.0); IMMATURE GRANULOCYTE (%) 1.8 % (0.0-0.7); LYMPHOCYTE (%) 6.1 % (15-42); LYMPHOCYTE COUNT 0.8 K/uL (1.0-2.8); MCH 28.8 PG (29.0-34.0); MCHC 33.7 G/DL (30.0-36.0); MCV 85.3 FL (83-99); MONOCYTE (%) 8.6 % (3-12); MONOCYTE COUNT 1.2 K/uL (0-0.8); NEUTROPHIL (%) 82.1 % (45-76); NEUTROPHIL COUNT 10.9 K/uL (1.8-6.4); PLATELET COUNT 222 K/uL (156-360); RBC DIS.WIDTH-CV 14.4 % (11.8-14.6); RBC DIS.WIDTH-SD 44.8 % (39-53); RED BLOOD COUNT 3.13 M/uL (3.80-5.20); WHITE BLOOD COUNT 13.3 K/uL (4.1-10.2)
[2018-01-06 05:49] LABS: CHLORIDE 106 MEQ/L (99-109); CREATININE 0.5 MG/DL (0.6-1.3); GFR ESTIMATE (CALCULATED) > 59 mL/min/; GLUCOSE 94 mg/dL (70-99); MAGNESIUM 1.3 mg/dl (1.3-2.7); SODIUM 138 MEQ/L (136-147); UREA NITROGEN (BUN) 12 mg/dL (9-23)
[2018-01-06 05:50] LABS: POTASSIUM 3.7 MEQ/L (3.7-5.4)
[2018-01-07] VITALS (7 sets, daily range): BP systolic 130–178; BP diastolic 65–89
[2018-01-07 05:46] LABS: HEMOGLOBIN 9.3 G/DL (11.9-15.5); MCH 28.9 PG (29.0-34.0); MCHC 34.4 G/DL (30.0-36.0); MCV 83.9 FL (83-99); PLATELET COUNT 243 K/uL (156-360); RBC DIS.WIDTH-CV 14.2 % (11.8-14.6); RBC DIS.WIDTH-SD 43.2 % (39-53); RED BLOOD COUNT 3.22 M/uL (3.80-5.20); WHITE BLOOD COUNT 11.2 K/uL (4.1-10.2)
[2018-01-08] VITALS (8 sets, daily range): BP systolic 116–168; BP diastolic 67–90
[2018-01-08 05:43] LABS: BASOPHIL (%) 0.2 % (0-1); EOSINOPHIL (%) 2.4 % (0-5); EOSINOPHIL COUNT 0.2 K/uL (0-0.3); HEMATOCRIT 25.9 % (36.0-46.0); IMMATURE GRANULOCYTE (%) 3.7 % (0.0-0.7); LYMPHOCYTE (%) 8.1 % (15-42); LYMPHOCYTE COUNT 0.8 K/uL (1.0-2.8); MCH 28.9 PG (29.0-34.0); MCHC 34.7 G/DL (30.0-36.0); MCV 83.3 FL (83-99); MONOCYTE (%) 8.7 % (3-12); MONOCYTE COUNT 0.8 K/uL (0-0.8); NEUTROPHIL (%) 76.9 % (45-76); NEUTROPHIL COUNT 7.1 K/uL (1.8-6.4); PLATELET COUNT 245 K/uL (156-360); RBC DIS.WIDTH-CV 14.3 % (11.8-14.6); RBC DIS.WIDTH-SD 42.5 % (39-53); RED BLOOD COUNT 3.11 M/uL (3.80-5.20); WHITE BLOOD COUNT 9.3 K/uL (4.1-10.2)
[2018-01-08 06:20] LABS: CHLORIDE 102 MEQ/L (99-109); CREATININE 0.5 MG/DL (0.6-1.3); GFR ESTIMATE (CALCULATED) > 59 mL/min/; GLUCOSE 102 mg/dL (70-99); SODIUM 136 MEQ/L (136-147); UREA NITROGEN (BUN) 7 mg/dL (9-23)
[2018-01-08 06:25] LABS: POTASSIUM 2.6 MEQ/L (3.7-5.4)
[2018-01-08 18:56] LABS: CHLORIDE 101 MEQ/L (99-109); CREATININE 0.5 MG/DL (0.6-1.3); GFR ESTIMATE (CALCULATED) > 59 mL/min/; SODIUM 134 MEQ/L (136-147); UREA NITROGEN (BUN) 6 mg/dL (9-23)
[2018-01-08 18:59] LABS: GLUCOSE 217 mg/dL (70-99); POTASSIUM 3.8 MEQ/L (3.7-5.4)
[2018-01-09 03:30] VITALS: BP 146/84
[2018-01-09 05:38] LABS: HEMATOCRIT 28.6 % (36.0-46.0); HEMOGLOBIN 9.7 G/DL (11.9-15.5); MCH 28.4 PG (29.0-34.0); MCHC 33.9 G/DL (30.0-36.0); MCV 83.9 FL (83-99); PLATELET COUNT 257 K/uL (156-360); RBC DIS.WIDTH-CV 14.2 % (11.8-14.6); RBC DIS.WIDTH-SD 43.5 % (39-53); RED BLOOD COUNT 3.41 M/uL (3.80-5.20); WHITE BLOOD COUNT 9.4 K/uL (4.1-10.2)
[2018-01-09 06:01] LABS: CHLORIDE 101 MEQ/L (99-109); CREATININE 0.5 MG/DL (0.6-1.3); GFR ESTIMATE (CALCULATED) > 59 mL/min/; SODIUM 135 MEQ/L (136-147); UREA NITROGEN (BUN) 4 mg/dL (9-23)
[2018-01-09 06:11] LABS: GLUCOSE 109 mg/dL (70-99); POTASSIUM 2.9 MEQ/L (3.7-5.4)
[2018-01-09 08:45] VITALS: BP 167/85
[2018-01-09 11:58] VITALS: BP 147/82
[2018-01-09 15:41] VITALS: BP 150/77
[2018-01-09 19:38] VITALS: BP 131/69
[2018-01-10 00:09] VITALS: BP 144/83
[2018-01-10 02:37] VITALS: BP 129/70
[2018-01-10 05:53] LABS: HEMATOCRIT 26.5 % (36.0-46.0); HEMOGLOBIN 9.2 G/DL (11.9-15.5); MCH 28.9 PG (29.0-34.0); MCHC 34.7 G/DL (30.0-36.0); MCV 83.3 FL (83-99); PLATELET COUNT 299 K/uL (156-360); RBC DIS.WIDTH-CV 14.5 % (11.8-14.6); RBC DIS.WIDTH-SD 43.4 % (39-53); RED BLOOD COUNT 3.18 M/uL (3.80-5.20); WHITE BLOOD COUNT 9.9 K/uL (4.1-10.2)
[2018-01-10 06:16] LABS: CHLORIDE 102 MEQ/L (99-109); CREATININE 0.8 MG/DL (0.6-1.3); GFR ESTIMATE (CALCULATED) > 59 mL/min/; GLUCOSE 104 mg/dL (70-99); SODIUM 135 MEQ/L (136-147); UREA NITROGEN (BUN) 5 mg/dL (9-23)
[2018-01-10 06:17] LABS: POTASSIUM 4.5 MEQ/L (3.7-5.4)
[2018-01-10 07:11] VITALS: BP 119/69
[2018-01-10 07:48] LABS: ABS NEUTROPHIL COUNT 8.3; ANISOCYTOSIS 1+; ATYPICAL LYMPHOCYTE 0.9 %; BURR CELLS 2+; EOSINOPHIL ABS CT 0; LYMPHOCYTES 7.1 % (15.0-45.0); MACROCYTES 1+; METAMYELOCYTES 0.9 %; MONOCYTES 6.2 % (0-9.0); MYELOCYTES 0.9 %; PLAT.SUFFICIENCY ADEQUATE; POIKILOCYTOSIS 2+
[2018-01-10 11:16] VITALS: BP 108/67
[2018-01-10 16:40] VITALS: BP 134/62
[2018-01-10 20:09] VITALS: BP 140/91
[2018-01-11] VITALS (7 sets, daily range): BP systolic 136–177; BP diastolic 61–89
[2018-01-11 06:12] LABS: CHLORIDE 100 MEQ/L (99-109); CREATININE 0.5 MG/DL (0.6-1.3); GFR ESTIMATE (CALCULATED) > 59 mL/min/; GLUCOSE 120 mg/dL (70-99); POTASSIUM 3.7 MEQ/L (3.7-5.4); SODIUM 135 MEQ/L (136-147); UREA NITROGEN (BUN) 5 mg/dL (9-23)
[2018-01-11 06:15] LABS: MAGNESIUM 1.8 mg/dl (1.3-2.7)
[2018-01-11 17:04] LABS: APPEARANCE CLEAR ((CLEAR)); BILIRUBIN NEGATIVE; BLOOD SMALL; COLOR STRAW ((YELLOW)); GLUCOSE (STRIP) NEGATIVE; KETONES NEGATIVE; LEUKOCYTES NEGATIVE; NITRITE NEGATIVE; PROTEIN (STRIP) NEGATIVE; SPECIFIC GRAVITY 1.003 (1.000-1.030); UROBILINOGEN 0.2 MG/DL (0.2-1.0)
[2018-01-11 17:17] LABS: BACTERIA RARE /HPF; EPITHELIAL CELLS RARE /HPF; MUCUS TRACE /LPF; RED BLOOD CELLS 0-5 /HPF (0-5); UCUL ADDED? NO; WHITE BLOOD CELLS 0-5 /HPF (0-5)
[2018-01-12 04:00] VITALS: BP 144/67
[2018-01-12 06:04] LABS: CHLORIDE 100 MEQ/L (99-109); CREATININE 0.6 MG/DL (0.6-1.3); GFR ESTIMATE (CALCULATED) > 59 mL/min/; GLUCOSE 106 mg/dL (70-99); MAGNESIUM 1.5 mg/dl (1.3-2.7); POTASSIUM 4.8 MEQ/L (3.7-5.4); SODIUM 137 MEQ/L (136-147); UREA NITROGEN (BUN) 5 mg/dL (9-23)
[2018-01-12 06:53] VITALS: BP 119/82
[2018-01-12 12:19] VITALS: BP 128/75
[2018-01-12 17:00] VITALS: BP 124/56
[2018-01-12 19:30] VITALS: BP 142/58
[2018-01-12 23:00] VITALS: BP 138/77
[2018-01-13 03:30] VITALS: BP 141/87
[2018-01-13 07:31] VITALS: BP 142/70
[2018-01-13 11:55] VITALS: BP 137/65
[2018-01-13] MEDS ORDERED: XARELTO15 MG PO (14:28)
[2018-01-13] MEDS ORDERED: CARDIZEM CD,CA300 MG PO (14:29)
[2018-01-13] MEDS ORDERED: ATORVASTATIN CA20 MG PO (14:36)
[2018-01-13 15:11] LABS: CHLORIDE 96 MEQ/L (99-109); CREATININE 0.8 MG/DL (0.6-1.3); GFR ESTIMATE (CALCULATED) > 59 mL/min/; GLUCOSE 108 mg/dL (70-99); POTASSIUM 4.2 MEQ/L (3.7-5.4); SODIUM 131 MEQ/L (136-147); UREA NITROGEN (BUN) 9 mg/dL (9-23)
[2018-01-13 17:23] VITALS: BP 124/70
[2018-01-13 19:09] VITALS: BP 135/87
[2018-01-13 23:02] VITALS: BP 155/88
[2018-01-14 03:30] VITALS: BP 166/85
[2018-01-14 06:02] LABS: HEMATOCRIT 30.7 % (36.0-46.0); HEMOGLOBIN 10.4 G/DL (11.9-15.5); MCH 28.7 PG (29.0-34.0); MCHC 33.9 G/DL (30.0-36.0); MCV 84.8 FL (83-99); PLATELET COUNT 334 K/uL (156-360); RBC DIS.WIDTH-CV 14.8 % (11.8-14.6); RBC DIS.WIDTH-SD 45.4 % (39-53); RED BLOOD COUNT 3.62 M/uL (3.80-5.20); WHITE BLOOD COUNT 7.9 K/uL (4.1-10.2)
[2018-01-14 08:37] VITALS: BP 142/65
[2018-01-14] MEDS ORDERED: LOPRESSOR50 MG PO (11:58)
[2018-01-14 14:40] VITALS: BP 138/58
== END 2018-01-14 15:33 | DRG 335 ==
LOC: EME 18:00 → 2EAST 12-30 00:55 → EDOF 12-30 00:55 → 4EAST 12-30 00:55 → ENRESERV 12-30 00:57 → 2EAST 12-30 02:10 → ENRESERV 12-31 13:07 → 2EAST 12-31 13:11 → ENRESERV 12-31 13:56 → 4EAST 12-31 15:52
PROVIDERS: Emergency Medicine; Hospitalist; Internal Medicine; Physician Assistant; Surgery
PROC: 0DN80ZZ Release Small Intestine, Open Approach (ICD-10-PCS; principal; 2017-12-31)
DX: K56.50 Intestinal adhesions [bands], unspecified as to partial versus complete obstruction (principal); K65.0 Generalized (acute) peritonitis; I21.4 Non-ST elevation (NSTEMI) myocardial infarction; E87.1 Hypo-osmolality and hyponatremia; I48.91 Unspecified atrial fibrillation; E78.5 Hyperlipidemia, unspecified; K44.9 Diaphragmatic hernia without obstruction or gangrene; K65.9 Peritonitis, unspecified; K21.9 Gastro-esophageal reflux disease without esophagitis; I73.9 Peripheral vascular disease, unspecified; K59.00 Constipation, unspecified; F41.9 Anxiety disorder, unspecified; G40.909 Epilepsy, unspecified, not intractable, without status epilepticus; G43.909 Migraine, unspecified, not intractable, without status migrainosus; I27.20 Pulmonary hypertension, unspecified; E87.2 Acidosis; E83.42 Hypomagnesemia; D64.9 Anemia, unspecified; E87.6 Hypokalemia; I10 Essential (primary) hypertension; Y92.239 Unspecified place in hospital as the place of occurrence of the external cause; Y84.8 Other medical procedures as the cause of abnormal reaction of the patient, or of later complication, without mention of misadventure at the time of the procedure; Z79.82 Long term (current) use of aspirin; Z86.73 Personal history of transient ischemic attack (TIA), and cerebral infarction without residual deficits; Z90.49 Acquired absence of other specified parts of digestive tract; Z90.710 Acquired absence of both cervix and uterus; Z85.038 Personal history of other malignant neoplasm of large intestine; Z79.899 Other long term (current) drug therapy
CPT/HCPCS: 36600; 71045; 74018; 74176; 74177; 80048; 80048 91; 80053; 81003; 82271; 82948; 83605; 83690; 83735; 84484; 85014; 85018; 85025; 85027; 86850; 86900; 86901; 87040; 87493; 93005; 93306; 94799; 97530 GO; 97530 GP; 99281; 99285; C1753; C9113; J0131; J0330; J0360; J1100; J1160; J1170; J1644; J1650; J1956; J2060; J2270; J2405; J2543; J2710; J3010; J3475; J3480; J7030; J7040; J7042; J7050; J7643; S0030; S0074